=== PATIENT | male | born 1950 | race Caucasian/White ===

== ENCOUNTER 2019-03-10 09:01 | Day surgery (SDC) | payer OTHER ==
[2019-03-10 09:48] VITALS: TEMP 98.5
[2019-03-10] MEDS ORDERED: LIDOCAINE 1% 20 ML MDV ID STA (09:49)
[2019-03-10] MEDS ORDERED: DIPRIVAN 20 ML VIAL IVP ONE (10:00)
[2019-03-10 15:10] VITALS: BP 132/79
--- NOTE | 2019-03-11 12:59 | OP ---
PROCEDURE: COLONOSCOPY TO THE CECUM WITH COLD SNARE POLYPECTOMY. ENDOSCOPIST: Sarah TEJADA M.D. INDICATION: HISTORY OF POLYPS. INSTRUMENT: Tao Sales-190. MEDICATION: PER ANESTHESIA. PROCEDURE: The patient was positioned for colonoscopy. The digital rectal exam was negative. The colonoscope was inserted through the anus and advanced to the cecum. The cecum was identified using the ileocecal valve and the appendiceal orifice as landmarks. The scope was slowly withdrawn through an adequately prepped colon. [place] Bowel Prep Score = 9. Small polyp in the cecal pit removed using cold snare polypectomy. Scattered diverticular disease throughout the colon. Retroflex exam was otherwise normal. Withdrawal time 10 minutes, 57 seconds. PLAN: 1. Review pathology with repeat colonoscopy in 5 years. CC: DR. KEDAR NAVARRO
== END 2019-03-10 10:50 | disposition home or self-care (01) ==
LOC: SURG 09:01
PROVIDERS: ATTEND Internal Medicine Gastroenterology
DX: Z86.010 Personal history of colon polyps (principal); D12.0 Benign neoplasm of cecum